=== PATIENT | female | born 1995 | race Two or more races ===

== ENCOUNTER 2018-03-01 15:07 | Emergency (ER) | payer MEDICAID ==
[~2018-03-01] VITALS: Ht 152.4 cm; Wt 50.8 kg
[2018-03-01] MEDS ORDERED: NKM (15:17)
[2018-03-01] MEDS ORDERED: Dexamethasone 4mg/ml vial IM ONE (15:45)
[2018-03-01] MEDS ORDERED: Lidocaine 2% Visc 15ml soln ORAL ONE (15:45)
[2018-03-01] MEDS ORDERED: CLINDAMYCIN HC300 MG ORAL (15:49)
[2018-03-01] MEDS ORDERED: LIDOCAINE20 MG/1 M1 MM (15:49)
--- NOTE | 2018-03-01 15:56 | Emergency Room Report ---
History of Present Illness General Chief Complaint: Sore Throat Source: Patient Present Illness HPI Patient is a 23-year-old female presented after increased sore throat for the past 3 days. Patient denies any fever or vomiting. Patient denies any diarrhea. Patient reports having increased pain to her throat. Patient denies any vomiting. She reports having increased right-sided earache. She denies any vomiting or diarrhea Allergies: Coded Allergies: PENICILLINS (Verified Allergy, Unknown, 03/01/18) Patient History Past Medical History: see triage record Last Menstrual Period: 01/2018 Reviewed Nursing Documentation: PMH: Agreed; PSxH: Agreed Nursing Documentation-PM Past Medical History: No Stated History Review of Systems All Other Systems: negative except mentioned in HPI Physical Exam Vital Signs Date Time Temp Pulse Resp B/P (MAP) Pulse Ox O2 Delivery O2 Flow Rate FiO2 03/01/18 15:14 99.1 104 19 104/60 99 Room Air Sp02 EP Interpretation: reviewed, normal General Appearance: normal inspection, well appearing, no apparent distress, alert, GCS 15 Head: atraumatic ENT: normal ENT inspection, hearing grossly normal, normal voice, other - tonsillar swelling, no uvular deviation, no fluctuance Neck: normal inspection, full range of motion, supple, no bony tend Respiratory: normal inspection, lungs clear, normal breath sounds, no respiratory distress, no retraction, no wheezing Cardiovascular #1: regular rate, rhythm, no edema Gastrointestinal: normal inspection, normal bowel sounds, non tender, soft, no guarding, no hernia Genitourinary: no CVA tenderness Musculoskeletal: normal inspection, back normal, normal range of motion Neurologic: normal inspection, alert, oriented x3, responsive, riverine [employer] III-XII nml as tested, speech normal Psychiatric: normal inspection, judgement/insight normal, mood/affect normal Skin: normal inspection, normal color, no rash Medical Decision Making Diagnostic Impression: Primary Impression: Tonsillitis ER Course Patient was in for sore throat. Differential diagnosis included but was not limited to meningitis, exudative tonsillitis, retropharyngeal abscess, epiglottitis, strep pharyngitis. The patient was noted to have a midline uvula with some tonsillar swelling and Patient was given IV fluids and IV antibiotics.The patient was advised to have a recheck for any worsening of condition. The patient does not have any definite abscess at this time. Patient given prescription for clindamycin as well as pain medications. She is advised to return if she began having increased difficulty breathing worsening sore throat or other concerns Labs Test 03/01/18 15:24 Urine HCG, Qualitative Negative (NEGATIVE) Last Vital Signs Date Time Temp Pulse Resp B/P (MAP) Pulse Ox O2 Delivery O2 Flow Rate FiO2 03/01/18 15:14 99.1 104 19 104/60 99 Room Air Status: improved Disposition: HOME, SELF-CARE Condition: Stable Scripts Clindamycin Hcl (CLINDAMYCIN HCL) 300 Mg Capsule 300 MG ORAL FOUR TIMES A DAY, #40 CAP Prov: Sebastien Jensen MD 03/01/18 Lidocaine HCl (Lidocaine HCl Viscous) 100 Ml Solution 20 MG MM THREE TIMES A DAY, #140 MG Prov: Sebastien Jensen MD 03/01/18 Patient Instructions: Tonsillitis Additional Instructions: Recheck in 24 hours for worsening infection Sebastien Jensen MD Mar 01, 2018 15:56
[2018-03-01 16:00] VITALS: BP 104/60
[2018-03-01] MEDS ORDERED: Clindamycin 150mg cap ORAL ONE (16:00)
[2018-03-01] MEDS ORDERED: Sodium Chloride 500ML 500 ML IV ONE (16:15)
[2018-03-01] MEDS ORDERED: Dexamethasone 4mg/ml vial IVP ONE (16:15)
[2018-03-01] MEDS ORDERED: Clindamycin 600mg 50 ML IVPB ONE (16:15)
[2018-03-01 17:06] VITALS: BP 114/73
== END 2018-03-01 17:06 | disposition home or self-care (01) ==
LOC: EMR 16:04
DX: J03.90 Acute tonsillitis, unspecified (principal); Z88.0 Allergy status to penicillin
CPT/HCPCS: 81025; 96365; 96372; 96375; 99284; J1100; J7040; S0077

== ENCOUNTER 2018-10-14 18:15 | Emergency (ER) | payer MEDICAID ==
[~2018-10-14] VITALS: Ht 154.9 cm; Wt 57.2 kg
[~2018-10-14 18:15] MED LIST: CLINDAMYCIN HC300 MG ORAL; LIDOCAINE20 MG/1 M1 MM; NKM
--- NOTE | 2018-10-14 18:18 | NUR ---
ED Nurse Note: Ivette walked into ED c/o nasuea and vomiting, states that it first started when eating fast food earlier today, states "i threw up so many times that after a while nothing would come out" patient is alert and oriented x4, reports of 8/10 pain in the lower abdomen
[2018-10-14 18:19] VITALS: BP 99/65
[2018-10-14] MEDS ORDERED: ZOFRAN4 M3 ORAL (18:32)
--- NOTE | 2018-10-14 18:32 | Emergency Room Report ---
History of Present Illness General Chief Complaint: Abdominal Pain Source: Patient Present Illness HPI 23-year-old female with no sig pmhx p/w epigastric abd pain nausea and vomiting for 1 day. She says that she ate some fast food yesterday, she suddenly got very sick. Her sister experienced the same symptoms. She thinks that it is food poisoning Patient says that pain is localized to epigastric area, non radiating, burning in nature, intermittent. No relieving or exacerbating factors. Pt reports n/v, >10 episodes of nbnb vomiting, no diarrhea Denies fever, chills. No hx of abdominal surgeries. No hx of endoscopies/colonoscopies. Allergies: Coded Allergies: PENICILLINS (Verified Allergy, Unknown, 03/01/18) Patient History Past Medical History: see triage record Past Surgical History: none Pertinent Family History: none Last Menstrual Period: 10/07/18 Reviewed Nursing Documentation: PMH: Agreed; PSxH: Agreed Nursing Documentation-PMH Past Medical History: No Stated History Review of Systems All Other Systems: negative except mentioned in HPI Physical Exam Vital Signs Date Time Temp Pulse Resp B/P (MAP) Pulse Ox O2 Delivery O2 Flow Rate FiO2 10/14/18 18:17 98.4 99 18 99/65 (76) 99 Room Air Sp02 EP Interpretation: reviewed, normal General Appearance: alert, GCS 15, non-toxic, mild distress Head: normocephalic, atraumatic Eyes: bilateral eye normal inspection, bilateral eye PERRL, bilateral eye EOMI ENT: normal ENT inspection, normal pharynx, normal voice, moist mucus membranes Neck: normal inspection, full range of motion, supple Respiratory: normal inspection, lungs clear, normal breath sounds, no respiratory distress, no retraction, no wheezing, speaking full sentences, chest symmetrical Cardiovascular #1: normal inspection, regular rate, rhythm, normal capillary refill Cardiovascular #2: 2+ radial (R), 2+ radial (L) Gastrointestinal: normal inspection, non tender, soft, non-distended, no guarding Musculoskeletal: normal inspection, back normal, normal range of motion, non- tender Neurologic: normal inspection, alert, oriented x3, responsive, motor strength/ tone normal, sensory intact, normal gait, speech normal Psychiatric: normal inspection, judgement/insight normal, memory normal Medical Decision Making Diagnostic Impression: Primary Impression: Nausea and vomiting ER Course 23-year-old female with abdominal pain nausea and vomiting Differential Diagnosis: Gastritis, gastroenteritis, UTI At this time I have low suspicion for cholecystitis, appendicitis, diverticulitis given the benign abdominal exam Plan: Basic labs, ua Pepcid, maalox, pain control, IVF ER course: Patient has remained stable during ED stay. Pain improved. Repeat abdominal exam is nontender. Tolerating PO Disposition: Patient is to be discharged to home. Prescriptions given are Zofran and pepcid Patient is instructed to follow up with their primary care doctor within 5 days. Strict return precautions discussed with patient such as fever, chills, worsening/severe abdominal pain, nausea, vomiting, black or bloody stools, which may indicate severe illness. Patient verbalizes understanding and agrees with plan. Please note that this Emergency Department Report was dictated using [employer] technology software, occasionally this can lead to erroneous entry secondary to interpretation by the dictation equipment Laboratory Tests Test 10/14/18 18:30 White Blood Count 12.0 K/UL (4.8-10.8) H Red Blood Count 4.86 M/UL (4.20-5.40) Hemoglobin 14.6 G/DL (12.0-16.0) Hematocrit 43.1 % (37.0-47.0) Mean Corpuscular Volume 89 FL (80-99) Mean Corpuscular Hemoglobin 30.1 PG (27.0-31.0) Mean Corpuscular Hemoglobin Concent 33.9 G/DL (32.0-36.0) Red Cell Distribution Width 10.9 % (11.6-14.8) L Platelet Count 248 K/UL (150-450) Mean Platelet Volume 6.1 FL (6.5-10.1) L Neutrophils (%) (Auto) 85.3 % (45.0-75.0) H Lymphocytes (%) (Auto) 9.2 % (20.0-45.0) L Monocytes (%) (Auto) 4.5 % (1.0-10.0) Eosinophils (%) (Auto) 0.4 % (0.0-3.0) Basophils (%) (Auto) 0.6 % (0.0-2.0) Urine Color Yellow Urine Appearance Cloudy Urine pH 5 (4.5-8.0) Urine Specific [place] 1.020 (1.005-1.035) Urine Protein 1+ (NEGATIVE) H Urine Glucose (UA) Negative (NEGATIVE) Urine Ketones 4+ (NEGATIVE) H Urine Blood 4+ (NEGATIVE) H Urine Nitrite Negative (NEGATIVE) Urine Bilirubin Negative (NEGATIVE) Urine Urobilinogen Normal MG/DL (0.0-1.0) Urine Leukocyte Esterase 3+ (NEGATIVE) H Urine RBC 2-4 /HPF (0 - 2) H Urine WBC 0-2 /HPF (0 - 2) Urine Squamous Epithelial Cells Many /LPF (NONE/OCC) H Urine Bacteria Moderate /HPF (NONE) H Urine HCG, Qualitative Negative (NEGATIVE) Sodium Level 137 MMOL/L (136-145) Potassium Level 3.3 MMOL/L (3.5-5.1) L Chloride Level 103 MMOL/L (98-107) Carbon Dioxide Level 24 MMOL/L (21-32) Anion Gap 10 mmol/L (5-15) Blood Urea Nitrogen 10 mg/dL (7-18) Creatinine 0.8 MG/DL (0.55-1.30) Estimate Glomerular Filtration Rate > 60 mL/min (>60) Glucose Level 131 MG/DL (74-106) H Calcium Level 9.1 MG/DL (8.5-10.1) Total Bilirubin 0.7 MG/DL (0.2-1.0) Aspartate Amino Transferase (AST) 13 U/L (15-37) L Alanine Aminotransferase (ALT) 8 U/L (12-78) L Alkaline Phosphatase 72 U/L (46-116) Total Protein 8.1 G/DL (6.4-8.2) Albumin 3.7 G/DL (3.4-5.0) Globulin 4.4 g/dL Albumin/Globulin Ratio 0.8 (1.0-2.7) L Lipase 75 U/L (73-393) Last Vital Signs Date Time Temp Pulse Resp B/P (MAP) Pulse Ox O2 Delivery O2 Flow Rate FiO2 10/14/18 18:17 98.4 99 18 99/65 (76) 99 Room Air Disposition: HOME, SELF-CARE Condition: Stable Scripts Famotidine (PEPCID AC) 20 Mg Tablet 20 MG PO QHS for 7 Days, #7 TAB Prov: Cortez Castellanos M.D. 7/16/19 Ondansetron* (ZOFRAN*) 4 Mg Tablet 4 MG ORAL Q6H PRN for Nausea & Vomiting for 3 Days, #10 TAB Prov: Cortez Castellanos M.D. 10/14/18 Cortez Castellanos M.D. Oct 14, 2018 18:31
[2018-10-14 18:47] LABS: BASOPHILS % (AUTO) 0.6 % (0.0-2.0); EOSINOPHILS % (AUTO) 0.4 % (0.0-3.0); HEMATOCRIT 43.1 % (37.0-47.0); HEMOGLOBIN 14.6 G/DL (12.0-16.0); LYMPHOCYTES % (AUTO) 9.2 % (20.0-45.0); MEAN CORPUSCULAR VOLUME 89 FL (80-99); MONOCYTES % (AUTO) 4.5 % (1.0-10.0); NEUTROPHILS % (AUTO) 85.3 % (45.0-75.0); PLATELET COUNT 248 K/UL (150-450); RED BLOOD COUNT 4.86 M/UL (4.20-5.40); RED CELL DISTRIBUTION WIDTH 10.9 % (11.6-14.8)
[2018-10-14 18:52] LABS: ANION GAP 10 mmol/L (5-15); BLOOD UREA NITROGEN 10 mg/dL (7-18); CALCIUM 9.1 MG/DL (8.5-10.1); CARBON DIOXIDE 24 MMOL/L (21-32); CHLORIDE 103 MMOL/L (98-107); CREATININE 0.8 MG/DL (0.55-1.30); POTASSIUM 3.3 MMOL/L (3.5-5.1); SODIUM 137 MMOL/L (136-145)
[2018-10-14 18:53] LABS: APPEARANCE,URINE CLOUDY; BILIRUBIN, URINE NEGATIVE (NEGATIVE); GLUCOSE, URINE (UA) NEGATIVE (NEGATIVE); KETONES,URINE 4+ (NEGATIVE); LEUKOCYTE ESTERASE ,URINE 3+ (NEGATIVE); NITRITE,URINE NEGATIVE (NEGATIVE); PH,URINE 5 (4.5-8.0); PROTEIN,URINE 1+ (NEGATIVE); UROBILINOGEN,URINE NORMAL MG/DL (0.0-1.0)
[2018-10-14 18:54] LABS: COLOR,URINE YELLOW
[2018-10-14 18:57] LABS: ALANINE AMINOTRANSFERASE 8 U/L (12-78); ALBUMIN 3.7 G/DL (3.4-5.0); ALBUMIN/GLOBULIN RATIO 0.8 (1.0-2.7); ALKALINE PHOSPHATASE 72 U/L (46-116); ASPARTATE AMINO TRANSFERASE 13 U/L (15-37); BILIRUBIN,TOTAL 0.7 MG/DL (0.2-1.0)
[2018-10-14] MEDS ORDERED: Dicyclomine HCl 10mg/5ml oral soln ORAL ONE (19:30)
[2018-10-14] MEDS ORDERED: Lidocaine 2% Visc 15ml soln ORAL ONE (19:30)
[2018-10-14] MEDS ORDERED: Mylanta II UD 30ml ORAL ONE (19:30)
[2018-10-14] MEDS ORDERED: PEPCID AC20 M2 PO (19:31)
[2018-10-14 20:15] VITALS: BP 103/72
--- NOTE | 2018-10-14 20:15 | NUR ---
ER DISCHARGE NOTE: Patient is cleared to be discharged per ERMD, pt is aox4, on room air, with stable vital signs. pt was given dc and prescription instructions, pt was able to verbalize understanding, pt id band and iv site removed without complications. pt is able to ambulate with steady gait. pt took all belongings.
== END 2018-10-14 20:15 | disposition home or self-care (01) ==
LOC: EMR 19:07
DX: R11.2 Nausea with vomiting, unspecified (principal); R10.9 Unspecified abdominal pain; Z88.0 Allergy status to penicillin
CPT/HCPCS: 36415; 80053; 81003; 81025; 83690; 85025; 87086; 96361; 96374; 96375; 99284; J2405; S0028